=== PATIENT | male | born 1950 | race Caucasian/White ===

== ENCOUNTER 2017-10-03 11:17 | Emergency (ER) | payer OTHER ==
[2017-10-03 11:35] VITALS: BP 138/74
--- NOTE | 2017-10-03 12:12 | UC ---
Ear Complaint HPI - HPI Summary HPI Summary: Pt c/o left ear pain and occasional "ringing" in ear X2 weeks. Pt had episode of "night sweats" last night. Pt was seen by pCP 2 weeks ago and had annual physical and blood work. Pt reports that PCP did not note any abnormalities appreciated from exam or from ordered blood work. - History of Current Complaint Chief Complaint: UCEar Stated Complaint: EAR COMPLAINT Time Seen by Provider: 10/03/17 11:21 Hx Obtained From: Patient Onset/Duration: Gradual Onset, Lasting Weeks - 2, Still Present Severity Initially: Mild Severity Currently: Mild Pain Intensity: 4 Pain Scale Used: 0-10 Numeric Associated Signs/Symptoms: Positive: Hearing Loss Related History: Other (Noted In Comments) - [place] palsy - Allergies/Home Medications Allergies/Adverse Reactions: Allergies Allergy/AdvReac Type Severity Reaction Status Date / Time No Known Allergies Allergy Verified 10/03/17 11:24 Home Medications: Home Medications Omeprazole CAP* [Prilosec CAP* 20 MG] 20 mg PO BID 10/03/17 [History Confirmed 10/03/17] PMH/Surg Hx/FS Hx/Imm Hx Previously Healthy: Yes Endocrine History: Dyslipidemia Cardiovascular History: Hypertension - Surgical History Surgical History: Yes - Family History Known Family History: Positive: Cardiac Disease - Social History Occupation: Employed Full-time Lives: Alone - lives in [place] Alcohol Use: Weekly Substance Use Type: None Smoking Status (MU): Former Smoker Have You Smoked in the Last Year: No When Did the Patient Quit Smoking/Using Tobacco: 2006 Review of Systems Constitutional: Chills Skin: Negative Eyes: Negative ENT: Ear Ache Respiratory: Negative Cardiovascular: Negative Gastrointestinal: Negative Genitourinary: Negative Motor: Negative Neurovascular: Negative Musculoskeletal: Negative Neurological: Negative Psychological: Negative Is Patient Immunocompromised?: No All Other Systems Reviewed And Are Negative: Yes Physical Exam Triage Information Reviewed: Yes Appearance: Well-Appearing Vital Signs: Initial Vital Signs Temp 98 F 10/03/17 11:29 Pulse 62 10/03/17 11:29 Resp 14 10/03/17 11:29 BP 138/74 10/03/17 11:29 Pulse Ox 99 10/03/17 11:29 Vital Signs Reviewed: Yes Eye Exam: Normal ENT Exam: Normal ENT: Positive: Other - smallnon tender bump in left ear canal. Dental Exam: Normal Neck exam: Normal Respiratory Exam: Normal Cardiovascular Exam: Normal Abdominal Exam: Normal Musculoskeletal Exam: Normal Neurological Exam: Normal Psychological Exam: Normal Skin Exam: Normal Ear Complaint Course/Dx - Differential Dx/Diagnosis Differential Diagnosis/HQI/PQRI: Cerumen Impaction, Otitis Externa, Otitis Media , URI Provider Diagnoses: left ear pain Discharge - Discharge Plan Condition: Stable Disposition: HOME Patient Education Materials: Earache (ED) Referrals: Leticia Solis NP [Primary Care Provider] - If Needed Additional Instructions: Please follow up with your PCP or return to clinic. If symptoms persist or worsen, please seek care at the closest healthcare facility. You may want to seek further evaluation from an Ear, Nose and Throat specialist. Please speak to your PCP regarding a referral if necessary. YOu have be given a paper prescription to full at your convenience for Ciprodex Otic. Please follow the directions as written.
== END 2017-10-03 12:00 | disposition home or self-care (01) ==
LOC: UCCORT 11:17
DX: H92.02 Otalgia, left ear (principal); I10 Essential (primary) hypertension; Z87.891 Personal history of nicotine dependence
CPT/HCPCS: 99212; G0463